=== PATIENT | female | born 1985 | race Two or more races ===

== ENCOUNTER → 2022-05-22 | Outpatient (CLI) | payer MEDICAID ==
[2022-05-22 11:59] LABS: Free T4 (Free Thyroxine) 1.13 ng/dL (0.89-1.76); T3 Total 1.36 ng/mL (0.60-1.81)
== END | disposition home or self-care (01) ==
LOC: LAB 10:23
PROVIDERS: ATTEND Student in an Organized Health Care Education/Training Program
DX: R79.89 Other specified abnormal findings of blood chemistry (principal)
CPT/HCPCS: 36415; 84439; 84443; 84480